=== PATIENT | female | born 1995 | race Caucasian/White ===

== ENCOUNTER → 2017-02-05 | Outpatient (CLI) | payer OTHER | LOC: LAB 12:14 | DX: N30.11 Interstitial cystitis (chronic) with hematuria (principal) | CPT/HCPCS: 74000; 87077; 87086; 87186 ==

== ENCOUNTER → 2021-05-09 | Outpatient (CLI) | payer OTHER ==
[~2021-05-09] MED LIST: COLACE 100MG C100 MG PO; IBUPROFEN600 MG PO; LORTAB 5-325 M1 EACH PO
== END ==
LOC: HEART 5 05-04 14:30
DX: R00.2 Palpitations (principal)